=== PATIENT | female | born 1985 | race Caucasian/White ===

== ENCOUNTER → 2020-09-14 13:54 | Outpatient (BNVA) | payer SELFPAY | PROVIDERS: Family Provider Pediatrics; PCP Pediatrics; Visit Provider Obstetrics & Gynecology | DX: Z12.4 Encounter for screening for malignant neoplasm of cervix (principal); B37.2 Candidiasis of skin and nail; Z01.419 Encounter for gynecological examination (general) (routine) without abnormal findings | CPT/HCPCS: 88175 ==